=== PATIENT | female | born 1995 | race African-American/Black ===

== ENCOUNTER 2016-09-29 22:27 | Emergency (ER) | payer MEDICAID, OTHER ==
[~2016-09-29] VITALS: Ht 167.6 cm; Wt 61.0 kg
[2016-09-30 00:01] LABS: CLARITY URINE CLEAR (CLEAR); COLOR URINE YELLOW (YELLOW); GLUCOSE URINE NEGATIVE (NEGATIVE); KETONES URINE NEGATIVE (NEGATIVE); LEUKOCYTE ESTERASE URINE TRACE (NEGATIVE); NITRITE URINE NEGATIVE (NEGATIVE); OCCULT BLOOD URINE TRACE (NEGATIVE); PH URINE 7.5 (4.5-8.0); PROTEIN URINE NEGATIVE (NEGATIVE); SPECIFIC GRAVITY URINE 1.011 (1.005-1.030); UROBILINOGEN URINE 0.2 E.U./dL (0.2-1.0)
[2016-09-30 00:07] LABS: HCG SCREEN NEGATIVE
[2016-09-30] MEDS ORDERED: CYCLOBENZAPRINE 10MG TABLET PO ONE (00:15)
[2016-09-30 00:27] LABS: BACTERIA URINE NONE SEEN; RBC URINE 0-2 /hpf (0-2); SQUAMOUS EPITHELIAL CELL URINE RARE /lpf (RARE/1+); WBC URINE 0-2 /hpf (0-2)
[2016-09-30] MEDS: IBUPROFEN 600MG TABLET PO ONE ×2 (00:32→01:09)
[2016-09-30 01:09] VITALS: BP 128/84
== END 2016-09-30 00:42 | disposition home or self-care (01) ==
LOC: ER 22:28
DX: S10.93XA Contusion of unspecified part of neck, initial encounter (principal); R30.0 Dysuria; N89.8 Other specified noninflammatory disorders of vagina; R07.9 Chest pain, unspecified; F12.10 Cannabis abuse, uncomplicated; X58.XXXA Exposure to other specified factors, initial encounter; Y99.8 Other external cause status; Y93.89 Activity, other specified
CPT/HCPCS: 71010; 81001; 81003; 84703; 99285